=== PATIENT | female | born 1955 | race Caucasian/White ===

== ENCOUNTER 2023-12-25 00:40 | Emergency (ER) | payer MEDICARE, OTHER ==
[~2023-12-25] VITALS: Ht 170.2 cm; Wt 81.6 kg
[2023-12-25 00:40] VITALS: BP 0/0; PULSE 0; RESP 0
--- NOTE | 2023-12-25 00:40 | NUR ---
BIBA ALS TO 10
--- NOTE | 2023-12-25 01:11 | NUR ---
TIME OF 0117
--- NOTE | 2023-12-25 01:30 | NUR ---
CALLED UP [facility]ICE AND TALKED TO REYES, SHE 'LL CALL BACK.
--- NOTE | 2023-12-25 01:35 | NUR ---
CALLED UP [facility] AND TALKED TO ELIAS PRUITT WITH CASE # [id number]
--- NOTE | 2023-12-25 04:08 | NUR ---
FOLLOWED UP WITH LANCE FROM [facility], AND WERE NEXT TO BE CALL.
--- NOTE | 2023-12-25 05:10 | NUR ---
THE BODY WAS RELEASED BY [facility] OFFICER ,ALEJANDRO RÍOS, WITH
--- NOTE | 2023-12-25 05:23 | NUR ---
nurse update patient's status with [facility], [facility] will call back in 1 hour to follow up
--- NOTE | 2023-12-25 05:55 | NUR ---
[facility] WAS THE MORTUARY CHOSEN BY DAUGHTER , AND CALLED TO PRESS OPERATOR AUTOMATIC THE BODY IN I-2 HOURS TIME
--- NOTE | 2023-12-25 06:07 | NUR ---
I CALLED UP JOHNIE BAKER INFORMING THAT THE BODY OF HER MOTHER WILL BE GUITAR REPAIR TECHNICIAN BY LEYLA MCFARLAND IN 1-2 HOURS TIME
--- NOTE | 2023-12-25 07:18 | NUR ---
LOGAN FROM [facility] WAS UPDATED REGARDING PATIENT
--- NOTE | 2023-12-25 07:48 | NUR ---
REPORT GIVEN TO MICHELLE LEAL
--- NOTE | 2023-12-25 08:04 | NUR ---
AWAITING FOR MORTUARY HEALTH AND SAFETY TECH. ALL BELONGINGS GATHERED IN BAG PLACED AT BEDSIDE.
--- NOTE | 2023-12-25 08:35 | NUR ---
PT AND BELONGINGS TAKEN BY LEYLA MCFARLAND.
== END 2023-12-25 01:11 ==
LOC: MED 00:40
DX: I46.9 Cardiac arrest, cause unspecified (principal); R06.02 Shortness of breath; R11.10 Vomiting, unspecified; Z95.0 Presence of cardiac pacemaker
CPT/HCPCS: 31500; 36680; 92950; 99291